=== PATIENT | male | born 1950 | race Caucasian/White ===

== ENCOUNTER → 2017-08-04 | Outpatient (CLI) | payer OTHER, BC ==
[~2017-08-04] MED LIST: NS 100 ML IV 100 ML IV ONE
[2017-08-04 08:53] LABS: CREATININE 1.17 mg/dL (0.70-1.30)
--- NOTE | 2017-08-04 10:47 | CT ---
CT ABDOMEN AND PELVIS WITH ORAL AND IV CONTRAST CLINICAL HISTORY: 66-year-old male with nausea, vomiting and abdominal pain. COMPARISON: None. TECHNIQUE: Multiple contiguous axial were obtained following the administration of intravenous and or al contrast. Images were reformatted in the coronal and sagittal planes. FINDINGS: The lung bases are clear without pulmonary nodules, masses, or pleural fluid collections. The inferi or imaged heart is normal in size and there is no pericardial effusion. The liver, gallbladder, pancreas, and spleen are within normal limits. The adrenal glands are normal bilaterally. The kidneys perfuse in a normal fashion and the ureters r un in an unobstructed course to a well distended urinary bladder. The prostate, seminal vesicles, and external genitalia are within normal limits. The bowel is without obstruction or inflammation and there is no free fluid or free air within the pe ritoneal cavity. Appendix is normal. Diffuse diverticular disease without CT evidence of diverticuli tis. There are no pathologically enlarged lymph nodes in the abdomen or pelvis. Moderate calcific and noncalcific atherosclerotic plaque throughout the aorta and its branches. Soft tissues are normal. The osseous structures are intact without fracture or malalignment. Calcification within the L5-S1 i ntervertebral disc, correlate with procedural history. IMPRESSION: 1. No acute intra-abdominal or pelvic pathology. 2. Diverticulosis without CT evidence of diverticulitis. 3. Normal appendix. 4. No nephroureterolithiasis. 5. Normal gallbladder. Reported By:
== END | disposition home or self-care (01) | DRG 392 ==
LOC: RAD 08:30
PROVIDERS: ATTEND Nurse Practitioner
DX: R10.84 Generalized abdominal pain (principal); R11.2 Nausea with vomiting, unspecified; K57.90 Diverticulosis of intestine, part unspecified, without perforation or abscess without bleeding
CPT/HCPCS: 36415; 74177; 82565; 84520; A4222

== ENCOUNTER → 2017-09-22 | Outpatient (CLI) | payer OTHER, BC ==
--- NOTE | 2017-09-22 14:30 | MRI ---
STUDY: MRA OF THE BRAIN HISTORY: Atherosclerosis. Pain. Claudication legs. Vertigo and right leg numbness. Comparison: None. Technique: 3D [id number] imaging of the intracranial circulation was performed. Findings: 3D [id number] MRA examination shows focal stenosis involving the cavernous right internal carotid artery of at least 50%. This is over short segment of approximately 4 mm. There is reconstitution of flow in the ICA terminus and a right posterior communicating artery. There is a aplastic right A1 AC A. There is normal flow related enhancement in the remaining major intracranial arteries. There is no evidence of aneurysm. There is a normal anterior communicating artery. There is a right clothes shaker ior communicating artery. The right vertebral artery is dominant. There is a PICA termination of the left vertebral artery. IMPRESSION: 1. Focal stenosis involving the right cavernous ICA of at least 50%, with distal reconstitution of f low and normal right MCA. 2. Aplastic right A1 TREVOR segment. 3. right PRESS OPERATOR MEAT. 4. Probable PICA termination of the left vertebral artery. Reported By:
--- NOTE | 2017-09-22 16:36 | VAS ---
ARTERIAL DOPPLER EVALUATION OF THE LOWER EXTREMITIES HISTORY: Claudication Comparison: None Technique: Multiple haley scale and color flow Doppler images of the right and left lower extremity ar terial system were obtained. Interrogation of the common femoral artery, superficial femoral artery, popliteal artery, and tibial arteries was performed. Findings: Triphasic waveforms are seen throughout the right and left lower extremity from the common femoral ar terial system to the tibial runoff. Right extremity: Common femoral : 148 cm/s Superficial femoral proximal: 156 cm/s Superficial femoral mid: 146 cm/s Superficial femoral distal : 195 cm/s Popliteal : 92 cm/s Posterior tibial : 66 cm/s Anterior tibial /dorsalis pedis: 56 cm/s Left extremity: Common femoral : 169 cm/s Superficial femoral proximal: 182 cm/s Superficial femoral mid: 155 cm/s Superficial femoral distal : 202 cm/s Popliteal : 95 cm/s Posterior tibial : 71 cm/s Anterior tibial /dorsalis pedis: 61 cm/s IMPRESSION: 1. 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 http://www.ncbi.nlm.nih.gov/pubmed/50665463 Reported By:
== END | disposition home or self-care (01) | DRG 301 ==
LOC: RAD 13:01
PROVIDERS: ATTEND Nurse Practitioner
DX: I70.213 Atherosclerosis of native arteries of extremities with intermittent claudication, bilateral legs (principal); I65.21 Occlusion and stenosis of right carotid artery
CPT/HCPCS: 70544; 93925

== ENCOUNTER 2022-11-25 13:56 | Observation (INO) ==
--- NOTE | 2022-11-25 15:19 | EKG ---
Test Reason : SOB Blood Pressure : */* mmHG Vent. Rate : 65 BPM Atrial Rate : 65 BPM P-R Int : 210 ms QRS Dur : 88 ms QT Int : 416 ms P-R-T Axes : 38 68 38 degrees QTc Int : 432 ms Sinus rhythm with 1st degree AV block Nonspecific T wave abnormality Abnormal ECG No previous ECGs available Confirmed by Robin Ford (4) on 11/25/2022 5:47:03 PM Referred By: Confirmed By: Robin Ford
[2022-11-25 15:31] LABS: BASOPHILS % (AUTO) 0.6 % (0.2-1.0); EOSINOPHILS # (AUTO) 0.2 x10^3/uL (0.0-0.2); EOSINOPHILS % (AUTO) 3.6 % (0.9-2.9); HEMOGLOBIN 13.3 g/dL (13.5-18.0); LYMPHOCYTES # (AUTO) 1.5 X10^3/uL (1.3-2.9); LYMPHOCYTES % (AUTO) 22.4 % (21.0-51.0); MEAN CORPUSCULAR HEMOGLOBIN 27.7 pg (27.0-34.0); MEAN CORPUSCULAR HGB CONC 33.3 g/dL (33.0-35.0); MEAN CORPUSCULAR VOLUME 83.2 fL (80.0-100.0); MEAN PLATELET VOLUME 9.1 fL (7.4-11.0); MONOCYTES # (AUTO) 0.8 x10^3/uL (0.3-0.8); NEUTROPHILS % (AUTO) 61.4 % (42.0-75.0); PLATELET COUNT 217 X10^3/uL (150.0-450.0); RED BLOOD COUNT 4.81 X10^6/uL (4.7-6.0); RED CELL DISTRIBUTION WIDTH 14.6 % (11.6-16.5); WHITE BLOOD COUNT 6.6 X10^3/uL (3.6-10.0)
[2022-11-25 15:50] VITALS: BMI 33.4
[2022-11-25 15:50] LABS: ALANINE AMINOTRANSFERASE 22 Units/L (12-78); ALBUMIN 3.5 g/dL (3.4-5.0); ALKALINE PHOSPHATASE 46 Units/L (46-116); ASPARTATE AMINO TRANSFERASE 20 Units/L (15-37); BLOOD UREA NITROGEN 19 mg/dL (7-18); CARBON DIOXIDE 28.8 mmol/L (21-32); CHLORIDE 100 mmol/L (98-107); COR NA(FOR HYPERGLY) 141 mmol/L (136-145); CREATINE KINASE 257 Units/L (39-308); CREATININE 1.71 mg/dL (0.70-1.30); GLUCOSE 271 mg/dL (65-99); MAGNESIUM 1.8 mg/dL (2.0-2.9); POTASSIUM 4.1 mmol/L (3.5-5.1); SODIUM 137 mmol/L (136-145); TOTAL PROTEIN 7.1 g/dL (6.4-8.2); eGFR NON BLACK RACES 42 (>60)
[2022-11-25] MEDS: NS 1,000 ML IV 1,000 ML IV SCH (16:26)
--- NOTE | 2022-11-25 17:01 | CT ---
CTA CHESTCLINICAL INDICATION: Shortness of breathPROCEDURE: Non gated axial images of the chest were obtained with intravenous contrast according to pulmonary embolism protocol. MIPS were reconstructed Dose reduction techniques including Automated Exposure Control (AEC) and adjustment of mA and kV were utlized.COMPARISON:NoneFINDINGS:No evidence of a pulmonary embolism to the level of the segmental pulmonary arteries.Cardiomegaly and severe coronary calcification.. No pericardial effusion . No suspicious mediastinal or axillary lymph nodes. Atelectasis of the lung bases. No focal consolidations, pleural effusions or pneumothorax .Airways are patent . No suspicious pulmonary nodules or masses .Spleen enlarged. Left adrenal adenoma measuring 2.1 cm. Simple hepatic cysts.No aggressive osseous lesions.IMPRESSION:1. No evidence of pulmonary embolism.Electronically signed by: SIVA RUBIO (November 25, 2022 17:00:26)
[2022-11-25] MEDS ORDERED: K-DUR TAB 20 MEQ PO PRN (17:33)
[2022-11-25] MEDS ORDERED: K-RIDER 10 MEQ/NS 100 ML 10 MEQ/100 ML BAG IV PRN (17:33)
[2022-11-25] MEDS ORDERED: MICRO K EXTEN CAP 10 MEQ PO PRN (17:33)
[2022-11-25] MEDS ORDERED: KLOR-CON PO PRN (17:33)
[2022-11-25] MEDS ORDERED: POTASSIUM CHLORIDE LIQ 20 MEQ UDC PO PRN (17:33)
[2022-11-25] MEDS ORDERED: POTASSIUM CHL 60 MEQ/NS 0.45% 500 ML IV PRN (17:33)
[2022-11-25] MEDS ORDERED: POTASSIUM CHL 40 MEQ/NS 0.45% 500 ML IV PRN (17:33)
--- NOTE | 2022-11-25 17:45 | EKG ---
Test Reason : SOB Blood Pressure : */* mmHG Vent. Rate : 64 BPM Atrial Rate : 64 BPM P-R Int : 206 ms QRS Dur : 88 ms QT Int : 436 ms P-R-T Axes : 35 43 22 degrees QTc Int : 449 ms Normal sinus rhythm Nonspecific T wave abnormality Abnormal ECG When compared with ECG of 25-NOV-2022 15:12, (Unconfirmed) No significant change was found Confirmed by Robin Ford (4) on 11/25/2022 5:46:41 PM Referred By: Confirmed By: Robin Ford
[2022-11-25] MEDS: NovoLIN R (or HumuLIN R) SUBCUT PRN ×2 (17:47→21:19)
[2022-11-25] MEDS: MAGNESIUM SULFATE 1 GRAM/100 mL PREMIX 1 G/100 ML BAG IV PRN (18:02)
[2022-11-25] MEDS ORDERED: SNACK - Diabetic Appropriate PO SCH (20:00)
[2022-11-25 20:15] LABS: APPEARANCE,URINE CLEAR (CLEAR); BLOOD/HEMOGLOBIN,URINE NEGATIVE (NEGATIVE); COLOR,URINE STRAW (YELLOW); KETONES,URINE NEGATIVE (NEGATIVE); NITRITES,URINE NEGATIVE (NEGATIVE); PROTEIN,URINE NEGATIVE (NEGATIVE)
[2022-11-25 20:16] LABS: BILIRUBIN,URINE NEGATIVE (NEGATIVE); LEUKOCYTE ESTERASE ,URINE NEGATIVE (NEGATIVE); UROBILINOGEN,URINE NORMAL (NORMAL)
[2022-11-25 20:17] LABS: GLUCOSE, URINE TRACE (NEGATIVE)
[2022-11-25] MEDS ORDERED: LOVENOX INJ 40 MG SYR SC SCH (21:00)
--- NOTE | 2022-11-25 22:35 | EKG ---
Test Reason : SOB Blood Pressure : */* mmHG Vent. Rate : 60 BPM Atrial Rate : 60 BPM P-R Int : 222 ms QRS Dur : 88 ms QT Int : 426 ms P-R-T Axes : 31 33 20 degrees QTc Int : 426 ms Sinus rhythm with 1st degree AV block Nonspecific T wave abnormality Abnormal ECG When compared with ECG of 25-NOV-2022 17:35, No significant change was found Confirmed by Robin Ford (4) on 11/27/2022 4:39:04 PM Referred By: Confirmed By: Robin Ford
[2022-11-26] MEDS: MAGNESIUM SULFATE 1 GRAM/100 mL PREMIX 1 G/100 ML BAG IV PRN (00:01)
[2022-11-26] MEDS: NS 1,000 ML IV 1,000 ML IV SCH ×2 (05:37→10:39)
[2022-11-26] MEDS: NEURONTIN CAP 300 MG PO SCH ×2 (05:40→13:32)
[2022-11-26] MEDS: NovoLIN R (or HumuLIN R) SUBCUT PRN ×2 (05:41→11:47)
[2022-11-26 06:05] LABS: BASOPHILS % (AUTO) 0.7 % (0.2-1.0); EOSINOPHILS # (AUTO) 0.2 x10^3/uL (0.0-0.2); EOSINOPHILS % (AUTO) 3.7 % (0.9-2.9); HEMATOCRIT 37.1 % (42.0-54.0); HEMOGLOBIN 12.6 g/dL (13.5-18.0); LYMPHOCYTES # (AUTO) 1.4 X10^3/uL (1.3-2.9); LYMPHOCYTES % (AUTO) 23.1 % (21.0-51.0); MEAN CORPUSCULAR VOLUME 82.2 fL (80.0-100.0); MEAN PLATELET VOLUME 9.2 fL (7.4-11.0); MONOCYTES # (AUTO) 0.7 x10^3/uL (0.3-0.8); MONOCYTES % (AUTO) 12.4 % (0.0-13.0); NEUTROPHILS # (AUTO) 3.5 x10^3/uL (2.2-4.8); NEUTROPHILS % (AUTO) 60.1 % (42.0-75.0); PLATELET COUNT 187 X10^3/uL (150.0-450.0); RED BLOOD COUNT 4.52 X10^6/uL (4.7-6.0); RED CELL DISTRIBUTION WIDTH 14.9 % (11.6-16.5); WHITE BLOOD COUNT 5.9 X10^3/uL (3.6-10.0)
[2022-11-26 06:17] LABS: CALCIUM 8.5 mg/dL (8.5-10.1); CARBON DIOXIDE 29.5 mmol/L (21-32); COR CA(FOR HYPOALB) 9.3 mg/dL (8.5-10.1); CREATININE 1.66 mg/dL (0.70-1.30); POTASSIUM 4.2 mmol/L (3.5-5.1); TOTAL PROTEIN 6.2 g/dL (6.4-8.2)
--- NOTE | 2022-11-26 06:32 | RAD ---
HISTORYShortness of breathSTUDYSingle-view chestCOMPARISONNoneFINDINGSThe trachea is midline. The cardiac silhouette is enlarged with a tortuous thoracic aorta. Prior changes of median sternotomy are noted. The lungs are clear without focal infiltrate or effusion. The bony thorax is unremarkable.IMPRESSIONNo acute cardiopulmonary disease.Electronically signed by: ANANTH BELL (Nov 26, 2022 06:31:44)
--- NOTE | 2022-11-26 08:41 | VAS ---
HISTORYReason For StudySTUDYLOWER EXT VENOUS, BILATERALCOMPARISONNoneTECHNIQUEMultiple haley scale and color flow Doppler images of the deep venous system were obtained of the right and left lower extremity.FINDINGSThe deep venous system of the right and left lower extremities were evaluated from the level of the common femoral vein through the popliteal vein. Normal color flow and augmentation can be observed. In addition, normal compression is seen throughout the deep venous system.IMPRESSIONNegative for DVT.Electronically signed by: JOE GARCIA (Nov 26, 2022 08:39:23)
[2022-11-26] MEDS ORDERED: FLOMAX PO SCH ×2 (09:00→21:00)
[2022-11-26] MEDS ORDERED: TRICOR TAB 145 MG PO SCH (09:00)
[2022-11-26] MEDS ORDERED: PATIENT'S HOME MEDICATION (Aspirin 81 mg Capsule) PO SCH (09:00)
[2022-11-26] MEDS ORDERED: POTASSIUM CHLORIDE 8 MEQ PO SCH (09:00)
[2022-11-26] MEDS ORDERED: VITAMIN D3 125 mcg (5,000 UNITS) PO SCH (09:00)
[2022-11-26] MEDS ORDERED: ZESTRIL TAB 10 MG PO SCH (09:00)
[2022-11-26] MEDS ORDERED: ASPIRIN EC 81 MG PO SCH (09:00)
[2022-11-26] MEDS ORDERED: LOPRESSOR TAB 25 MG PO SCH (09:00)
[2022-11-26] MEDS ORDERED: PROTONIX TAB 40 MG PO SCH (09:00)
[2022-11-26] MEDS ORDERED: LIPITOR TAB 20 MG PO SCH (09:00)
[2022-11-26] MEDS ORDERED: SYNTHROID 50 mcg TAB PO SCH (09:00)
--- NOTE | 2022-11-26 09:01 | DR.UPDATE ---
H&P Update Prescription drug monitoring program results: PDMP reviewed and no concerns identified H&P Reviewed: Yes Any changes to H&P?: Yes Changes noted:: IS A 72 YEAR OLD PATIENT OF OURS. HE WAS A DIRECT ADMISSION TO THE HOSPITAL OBSERVATION STATUS FOR FURTHER EVALUATION AND TREATMENT OF SHORTNESS OF BREATH, WEAKNESS, AND MUSCLE CRAMPS. HE REPORTS THAT HIS SYMPTOMS STARTED 2-3 DAYS AGO AND HAVE PROGRESSIVELY GOTTEN WORSE. HE HAS A PMH OF CAD, PVD, HYPERLIPIDEMIA, HTN, GERD, CHRONIC CONSTIPATION, TINNITUS, ARTHRITIS, BPH, DM II, HYPOTHYROIDISM, HX OF MELANOMA, CABG, TRIPLE BYPASS, RIGHT HAND SURGERY, SPINAL SURGERY. HE REPORTS THAT HIS TRIPLE BYPASS WAS IN APRIL OF 2022. ON ARRIVAL TO THE HOSPITAL, HIS VITALS WERE: 97.9-73-20-93%-168/70. LABS WERE OBTAINED. WBC 6.6, RBC 4.81, HGB 13.3, HCT 40.0, PLT COUNT 217, D-DIMER 0.82, SODIUM 137, POTASSIUM 4.1, CHLORIDE 100, BUN 19, CREATININE 1.71, GLUCOSE 271, CALCIUM 9.0, MAGNESIUM 1.8, TOTAL BILI 0.40, AST 20, ALT 22, ALK PHOS 46, CREATINE KINASE 257, TROPONIN 7.1, TOTAL PROTEIN 7.1, ALBUMIN 3.5. URINALYSIS WAS OBTAINED AND IS UNREMARKABLE. A CHEST CTA WAS OBTAINED AND REVEALED: No evidence of a pulmonary embolism to the level of the segmental pulmonary arteries. Cardiomegaly and severe coronary calcification. No pericardial effusion . No suspicious mediastinal or axillary lymph nodes. Atelectasis of the lung bases. No focal consolidations, pleural effusions or pneumothorax .Airways are patent. No suspicious pulmonary nodules or masses. Spleen enlarged. Left adrenal adenoma measuring 2.1 cm. Simple hepatic cysts. No aggressive osseous lesions. AN EKG WAS OBTAINED AND REVEALED: SINUS RHYTHM WITH 1ST DEGREE AV BLOCK. HR WAS 65 BPM. A LOWER EXTREMITY VENOUS DOPPLER WAS OBTAINED AND WAS NEGATIVE FOR DVT. HE WAS STARTED ON NORMAL SALINE AT 80 ML/HR, LOVENOX 40MG SC HS, OTBS ACHS, HUMULIN R SLIDING SCALE, AND THE POTASSIUM AND MAGNESIUM PROTOCOLS. WE WILL RESUME HIS HOME MEDICATIONS OF VITAMIN D3, PANTOPRAZOLE, GABAPENTIN, METOPROLOL, ASPIRIN, TAMSULOSIN, LISINOPRIL, LEVOTHYROXINE, FENOFIBRATE, AND ATORVASTATIN. WE WILL HOLD HIS HCTZ AND METFORMIN FOR NOW. WE WILL REPEAT SERIAL CARDIAC ENZYMES AND EKGS. OTHERWISE, WE WILL FOLLOW-UP WITH AM LABS AND CONTINUE TO MONITOR. TIME SPENT ON CLINICAL ASSESSMENT, REVIEWING LABS AND IMAGING, DECISION MAKING, AND DOCUMENTATION GREATER THAN 75 MINUTES. Patient was examined?: Yes
[2022-11-26 13:15] VITALS: BP 155/75; PULSE 62; TEMP 97.9; O2SAT 99
== END 2022-11-26 15:50 | disposition home or self-care (01) ==
LOC: MED/SURG
PROVIDERS: ADMIT Internal Medicine; ATTEND Internal Medicine
DX: K21.9 Gastro-esophageal reflux disease without esophagitis; R53.1 Weakness; R06.02 Shortness of breath; R94.31 Abnormal electrocardiogram [ECG] [EKG]; E11.65 Type 2 diabetes mellitus with hyperglycemia; E03.8 Other specified hypothyroidism; I10 Essential (primary) hypertension; E83.42 Hypomagnesemia; R79.1 Abnormal coagulation profile; E78.2 Mixed hyperlipidemia; Z79.899 Other long term (current) drug therapy; I25.10 Atherosclerotic heart disease of native coronary artery without angina pectoris